=== PATIENT | female | born 1985 | race Caucasian/White ===

== ENCOUNTER 2016-06-04 19:49 | Emergency (ER) | payer MEDICAID ==
[~2016-06-04] VITALS: Ht 152.4 cm; Wt 62.0 kg
[2016-06-04 20:15] VITALS: Ht 152.4 cm; Wt 62.0 kg
--- NOTE | 2016-06-04 21:22 | ERD ---
ER Documentation Chief Complaint Date/Time DATE: 06/04/16 TIME: 21:19 Chief Complaint vag bleed since 10 am today, 11 weeks HPI 30-year-old female presents here in emergency department for complaints of vaginal bleeding started this morning, describes the bleeding or spotting any get heavier this afternoon. Patient is 6 para 5 0. Patient is approximately 11 weeks . Patient is complaining of pelvic pain, cramping pain, 4/10 scale, accompanying the bleeding. She denies hematuria or dysuria. Patient denies any nausea or vomiting. Patient denies any fever or chills. ROS All systems reviewed and are negative except as per history of present illness. Medications Home Meds Reported Medications [none] Unknown Strength No Conflict Check 06/04/16 Allergies Allergies: Coded Allergies: No Known Drug Allergy (Verified Allergy, Mild, 05/14/10) PMhx/Soc Medical and Surgical Hx: pt denies Medical Hx, pt denies Surgical Hx History of Surgery: No Anesthesia Reaction: No Hx Neurological Disorder: No Hx Respiratory Disorders: No Hx Cardiac Disorders: No Hx Psychiatric Problems: No Hx Miscellaneous Medical Probl: No Hx Alcohol Use: No Hx Substance Use: No Hx Tobacco Use: No FmHx Family History: No coronary disease, No diabetes, No other Physical Exam Vitals Vital Signs Date Time Temp Pulse Resp B/P Pulse Ox O2 Delivery O2 Flow Rate FiO2 06/04/16 20:15 98.6 60 18 115/58 99 Physical Exam GENERAL: The patient is well developed and appropriate for usual state of health, in no apparent distress. CHEST: Clear to auscultation bilaterally. There are no rales, wheezes or rhonchi. HEART: Regular rate and rhythm. No murmurs, clicks, rubs or gallops. No S3 or S4. ABDOMEN: Soft, nontender and nondistended. Good bowel sounds. No rebound or guarding. No gross peritonitis. No gross organomegaly or masses. No Cordova sign or McBurney point tenderness. BACK: No midline or flank tenderness. EXTREMITIES: Equal pulses bilaterally. There is no peripheral clubbing, cyanosis or edema. No focal swelling or erythema. Full range of motion. Grossly neurovascularly intact. NEURO: Alert and oriented. Cranial nerves 2-12 intact. Motor strength in all 4 extremities with 5/5 strength. Sensation grossly intact. Normal speech and gait. SKIN: There is no apparent rash or petechia. The skin is warm and dry. HEMATOLOGIC AND LYMPHATIC: There is no evidence of excessive bruising or lymphedema. No gross cervical, axillary, or inguinal lymphadenopathy. VAGINAL: Patient is small amount of blood in the vaginal vault, cervical os is closed. No cervical motion tenderness or adnexal tenderness noted. Result Diagram: 06/04/160 Results 24 hrs Laboratory Tests Test 06/04/16 21:30 06/04/16 21:45 White Blood Count 8.410^3/ul Red Blood Count 4.3110^6/ul Hemoglobin 12.7g/dl Hematocrit 39.3% Mean Corpuscular Volume 91.2fl Mean Corpuscular Hemoglobin 29.5pg Mean Corpuscular Hemoglobin Concent 32.3g/dl Red Cell Distribution Width 13.4% Platelet Count 98701^3/UL Mean Platelet Volume 9.2fl Neutrophils % 66.3% Lymphocytes % 26.3% Monocytes % 5.7% Eosinophils % 1.0% Basophils % 0.5% Nucleated Red Blood Cells % 0.0/100WBC Neutrophils # 5.610^3/ul Lymphocytes # 2.210^3/ul Monocytes # 0.510^3/ul Eosinophils # 0.110^3/ul Basophils # 0.010^3/ul Nucleated Red Blood Cells # 0.010^3/ul Urine Color RED Urine Clarity OTHER Urine pH 6.5 Urine Specific [place] 1.020 Urine Ketones NEGATIVE Urine Nitrite NEGATIVE Urine Bilirubin NEGATIVE Urine Urobilinogen 0.2 E.U./dL Urine Leukocyte Esterase NEGATIVE Urine Microscopic RBC >200/HPF Urine Microscopic WBC NONE SEEN/HPF Urine Epithelial Cells FEW Urine Bacteria MODERATE Urine Hemoglobin 3+ Urine Glucose NEGATIVE% Urine Total Protein TRACE Beta HCG, Quantitative 5844.4mIU/ml PROCEDURE: US OB. CLINICAL INDICATION: Vaginal bleeding a 30-year-old female. TECHNIQUE: Transabdominal and transvaginal views of the pelvis are available for review. COMPARISON: No prior studies are available for comparison. FINDINGS: The uterus measures 10.5 cm sagittal by 6.5 cm AP by 7.7 cm transverse. The uterus contains a gestational sac. A small amount of fluid is noted in the cervical os. The gestational sac measured 1.9 x 1.2 x 1.1 cm. The mean sac diameter is 1.4 cm which calculates out to 6 weeks 0 days. [place]-rump length: 0.69 cm equals 6 weeks 4 days. heart rate: No heart tones are identified. Nuchal translucency: Not available. Ultrasound estimated gestational age: 10 weeks 6 days. No ovarian or adnexal mass lesion is seen. There is no free fluid. IMPRESSION: 1. demise. 2. AUA is 6 weeks 4 days plus or minus 0 weeks 4 days. RPTAT:AAJJ Physician Jamil Date Time Electronically viewed and signed by Kevin Sawyer Physician on 06/04/2016 21:55 JM/ CC: JOSE BARFIELD REVERBERATORY SKIMMER Procedures/MDM Medical Decision Making: Patients vaginal bleeding is most likely consistent of possible threatened . Patient does not show any evidence of hypovolemic shock. Patients hemoglobin and hematocrit is stable. There is low suspicion for ectopic . AMBROCIO results show 6 wks w/o FHT. BetaHCG Quantitative is lower for gestational age of 10 wks.The patient is Rh+, does not need RhoGAM this time. There is no signs of symptoms of dehydration. There is low suspicion for sepsis. Patient appears well and is hemodynamically stable. Disposition: Home. Condition: Stable RX: TYLENOL Instructions: Patient is advised to do bed rest, avoid heavy lifting, and avoid having sex until cleared by OB doctor. Patient is advised to follow up with OB doctor or here at the ER in 48 hours for reevaluation of symptoms, repeat beta HCG quantitative and ultrasound. Patient is advised that is symptoms are worst, severe bleeding, dizziness, severe abdominal pain, fever, worst signs and symptoms to return to the emergency department immediately. Departure Diagnosis: Primary Impression: Threatened Condition: Stable Patient Instructions: Possible Miscarriage (Threatened ) Additional Instructions: Patient is advised to do bed rest, avoid heavy lifting, and avoid having sex until cleared by OB doctor. Patient is advised to follow up with OB doctor or here at the ER in 48 hours for reevaluation of symptoms, repeat beta HCG quantitative and ultrasound. Patient is advised that is symptoms are worst, severe bleeding, dizziness, severe abdominal pain, fever, worst signs and symptoms to return to the emergency department immediately. JOSE BARFIELD NP Jun 04, 2016 21:22
[2016-06-04 21:46] LABS: ADD UMIC YES; URINE BILIRUBIN (Dip) NEGATIVE (NEGATIVE); URINE BLOOD (Dip) 3+ (NEGATIVE); URINE COLOR RED (YELLOW); URINE GLUCOSE (Dip) NEGATIVE (NEGATIVE); URINE KETONES (Dip) NEGATIVE (NEGATIVE); URINE LEUKOCYTE ESTERASE (Dip) NEGATIVE (NEGATIVE); URINE NITRITE (Dip) NEGATIVE (NEGATIVE); URINE TOTAL PROTEIN (Dip) TRACE (NEGATIVE); URINE UROBILINOGEN (Dip) 0.2 E.U./dL (0.1-1.0)
--- NOTE | 2016-06-04 21:56 | RADRPT ---
PROCEDURE: US OB. CLINICAL INDICATION: Vaginal bleeding a 30-year-old female. TECHNIQUE: Transabdominal and transvaginal views of the pelvis are available for review. COMPARISON: No prior studies are available for comparison. FINDINGS: The uterus measures 10.5 cm sagittal by 6.5 cm AP by 7.7 cm transverse. The uterus contains a gesta tional sac. A small amount of fluid is noted in the cervical os. The gestational sac measured 1.9 x 1.2 x 1.1 cm. The mean sac diameter is 1.4 cm which calculates o ut to 6 weeks 0 days. [place]-rump length:0.69 cm equals 6 weeks 4 days. heart rate:No heart tones are identified. Nuchal translucency:Not available. Ultrasound estimated gestational age:10 weeks 6 days. No ovarian or adnexal mass lesion is seen. There is no free fluid. IMPRESSION: 1. demise. 2. AUA is 6 weeks 4 days plus or minus 0 weeks 4 days. RPTAT:AAJJ Physician Jamil Date Time Electronically viewed and signed by Kevin Sawyer Physician on 06/04/2016 21:55 /
[2016-06-04 22:02] LABS: ADD SCAN DIFF NO
[2016-06-04 22:04] LABS: BASOPHILS % 0.5 % (0.0-2.0); EOSINOPHILS # 0.1 10^3/ul (0.0-0.5); HEMATOCRIT 39.3 % (37.0-47.0); HEMOGLOBIN 12.7 g/dl (12.0-16.0); LYMPHOCYTES # 2.2 10^3/ul (0.8-2.9); LYMPHOCYTES % 26.3 % (15.0-51.0); MEAN CORPUSCULAR HEMOGLOBIN 29.5 pg (29.0-33.0); MEAN CORPUSCULAR HGB CONC 32.3 g/dl (32.0-37.0); MEAN CORPUSCULAR VOLUME 91.2 fl (82.0-101.0); MEAN PLATELET VOLUME 9.2 fl (7.4-10.4); MONOCYTE # 0.5 10^3/ul (0.3-0.9); MONOCYTES % 5.7 % (0.0-11.0); NEUTROPHIL # 5.6 10^3/ul (1.6-7.5); NEUTROPHILS % 66.3 % (39.0-77.0); PLATELET COUNT 213 10^3/UL (140-415); RED BLOOD COUNT 4.31 10^6/ul (4.20-5.40); RED CELL DISTRIBUTION WIDTH 13.4 % (11.5-14.5); WHITE BLOOD COUNT 8.4 10^3/ul (4.8-10.8)
[2016-06-04 22:17] LABS: BACTERIA,URINE MODERATE; URINE RBCS >200 /HPF (0)
[2016-06-04] MEDS ORDERED: ACET500C5 PO (22:52)
[2016-06-04 23:27] VITALS: BP 122/78; PULSE 65; RESP 16
== END 2016-06-04 23:29 | disposition home or self-care (01) ==
LOC: FTE 19:49
DX: O20.0 Threatened abortion (principal); Z3A.01 Less than 8 weeks gestation of pregnancy
CPT/HCPCS: 76801; 76817; 81001; 81003; 84702; 85025; 86900; 86901; Z7502

== ENCOUNTER 2016-06-06 12:59 | Emergency (ER) | payer MEDICAID ==
[~2016-06-06] VITALS: Ht 157.5 cm; Wt 68.0 kg
[~2016-06-06 12:59] MED LIST: ACET500C5 PO
[2016-06-06 13:01] VITALS: Ht 157.5 cm; Wt 68.0 kg
[2016-06-06 14:56] LABS: ADD SCAN DIFF NO
[2016-06-06 14:59] LABS: BASOPHILS % 0.5 % (0.0-2.0); EOSINOPHILS # 0.1 10^3/ul (0.0-0.5); EOSINOPHILS % 1.7 % (0.0-7.0); HEMOGLOBIN 13.4 g/dl (12.0-16.0); LYMPHOCYTES % 30.8 % (15.0-51.0); MEAN CORPUSCULAR HEMOGLOBIN 30.2 pg (29.0-33.0); MEAN CORPUSCULAR HGB CONC 32.7 g/dl (32.0-37.0); MEAN CORPUSCULAR VOLUME 92.6 fl (82.0-101.0); MEAN PLATELET VOLUME 9.1 fl (7.4-10.4); MONOCYTE # 0.4 10^3/ul (0.3-0.9); MONOCYTES % 6.4 % (0.0-11.0); NEUTROPHILS % 60.3 % (39.0-77.0); PLATELET COUNT 224 10^3/UL (140-415); RED BLOOD COUNT 4.43 10^6/ul (4.20-5.40); RED CELL DISTRIBUTION WIDTH 13.2 % (11.5-14.5); WHITE BLOOD COUNT 6.6 10^3/ul (4.8-10.8)
[2016-06-06 15:27] LABS: ADD UMIC YES; URINE BILIRUBIN (Dip) NEGATIVE (NEGATIVE); URINE BLOOD (Dip) 3+ (NEGATIVE); URINE COLOR LT. YELLOW (YELLOW); URINE GLUCOSE (Dip) NEGATIVE (NEGATIVE); URINE KETONES (Dip) NEGATIVE (NEGATIVE); URINE LEUKOCYTE ESTERASE (Dip) NEGATIVE (NEGATIVE); URINE NITRITE (Dip) NEGATIVE (NEGATIVE); URINE TOTAL PROTEIN (Dip) NEGATIVE (NEGATIVE); URINE UROBILINOGEN (Dip) 0.2 E.U./dL (0.1-1.0)
--- NOTE | 2016-06-06 15:40 | RADRPT ---
PROCEDURE: US Pelvis. CLINICAL INDICATION: vaginal bleeding TECHNIQUE: Multiple sonographic images of the pelvis were obtained utilizing a transabdominal and endovaginal technique. The images were reviewed on a PACS workstation. COMPARISON: 06/04/2016 FINDINGS: The uterus is normal in size and demonstrates a normal appearance of the myometrium. The endometria l stripe is slightly heterogeneous in appearance and has the thickness of 12 mm. Previously seen intrauterine gestation is no longer visualized. The ovaries are normal in size and echogenicity. Normal Doppler flow is identified in both ovaries. The right ovary measures 1.7 x 0.8 x 1.1 cm. The left ovary measures 1.7 x 1.2 x 1.4 cm. No free fluid is present within the pelvis.. RPTAT: AA IMPRESSION: Previously seen intrauterine gestation is no longer visualized. Follow-up decreasing HCG levels is recommended. .He Stock MD, MD Date Time Electronically viewed and signed by .He Stock MD, on 06/06/2016 15:39 .S/
[2016-06-06 15:45] LABS: BACTERIA,URINE FEW; URINE RBCS >50 /HPF (0)
--- NOTE | 2016-06-06 15:49 | ERD ---
ER Documentation Chief Complaint Date/Time DATE: 06/06/16 TIME: 15:47 Chief Complaint vaginal bleeding 11 weeks HPI This is a 30-year-old female presents to the ER with continued vaginal bleeding. Patient started bleeding 2 days ago and was seen here. Patient states that last night she began to bleed more heavily and she saw some tissue passed. She still having some pelvic cramping. Patient denies any urinary frequency or dysuria. A0. Patient denies any vaginal discharge. ROS 12 point review of systems was done, all negative except per HPI. Medications Home Meds Active Scripts Acetaminophen* (Tylophen*) 500 Mg Capsule, 1 CAP PO Q6H Y for PAIN AND OR ELEVATED TEMP, #20 CAP Prov:JOSE BARFIELD NP 06/04/16 Reported Medications [none] Unknown Strength No Conflict Check 06/04/16 Allergies Allergies: Coded Allergies: No Known Drug Allergy (Verified Allergy, Mild, 06/06/16) PMhx/Soc Medical and Surgical Hx: pt denies Medical Hx, pt denies Surgical Hx History of Surgery: No Anesthesia Reaction: No Hx Neurological Disorder: No Hx Respiratory Disorders: No Hx Cardiac Disorders: No Hx Psychiatric Problems: No Hx Miscellaneous Medical Probl: No Hx Alcohol Use: No Hx Substance Use: No Hx Tobacco Use: No Smoking Status: Never smoker Physical Exam Vitals Vital Signs Date Time Temp Pulse Resp B/P Pulse Ox O2 Delivery O2 Flow Rate FiO2 06/06/16 13:01 98.4 62 18 109/63 97 Physical Exam GENERAL: The patient is well developed and appropriate for usual state of health , in no apparent distress. HEENT: Atraumatic. C CHEST: Clear to auscultation bilaterally. There are no rales, wheezes or rhonchi. HEART: Regular rate and rhythm. No murmurs, clicks, rubs or gallops. ABDOMEN: Soft, nontender and nondistended. Good bowel sounds. No rebound or guarding. No gross peritonitis. No gross organomegaly or masses. No Cordova sign or McBurney point tenderness. BACK: No midline or flank tenderness. NEURO: Alert and oriented. SKIN: The skin is warm and dry. Result Diagram: 06/06/16 1440 Results 24 hrs Laboratory Tests Test 06/06/16 14:40 White Blood Count 6.610^3/ul Red Blood Count 4.4310^6/ul Hemoglobin 13.4g/dl Hematocrit 41.0% Mean Corpuscular Volume 92.6fl Mean Corpuscular Hemoglobin 30.2pg Mean Corpuscular Hemoglobin Concent 32.7g/dl Red Cell Distribution Width 13.2% Platelet Count 30138^3/UL Mean Platelet Volume 9.1fl Neutrophils % 60.3% Lymphocytes % 30.8% Monocytes % 6.4% Eosinophils % 1.7% Basophils % 0.5% Nucleated Red Blood Cells % 0.0/100WBC Neutrophils # 4.010^3/ul Lymphocytes # 2.010^3/ul Monocytes # 0.410^3/ul Eosinophils # 0.110^3/ul Basophils # 0.010^3/ul Nucleated Red Blood Cells # 0.010^3/ul Urine Color LT. YELLOW Urine Clarity HAZY Urine pH 5.5 Urine Specific [place] 1.025 Urine Ketones NEGATIVE Urine Nitrite NEGATIVE Urine Bilirubin NEGATIVE Urine Urobilinogen 0.2 E.U./dL Urine Leukocyte Esterase NEGATIVE Urine Microscopic RBC >50/HPF Urine Microscopic WBC 2-5/HPF Urine Epithelial Cells MODERATE Urine Bacteria FEW Urine Hemoglobin 3+ Urine Glucose NEGATIVE% Urine Total Protein NEGATIVE Beta HCG, Quantitative 1980.6mIU/ml Procedures/MDM Differential diagnosis: Threatened , missed , incomplete , ectopic , molar , UTI, pyelonephritis. This is a 30 -year-old female presents to the ER with vaginal bleeding. Patient unfortunately did have a miscarriage. Intrauterine gestation is no longer seen on ultrasound and her beta hCG is going down. Patient is to follow-up with her primary care doctor within 1-2 days or return to ER sooner if symptoms worsen. My medical decision making was shared with the patient she understands and agrees with plan Departure Diagnosis: Primary Impression: Miscarriage Condition: Stable Patient Instructions: Miscarriage Additional Instructions: Llame al doctor MAANA y ray ivan LYNNETTE PARA DENTRO DE 1-2 SOUTH.Dgale a la secretaria que nosotros le instruimos hacer esta lynnette.Avise o llame si buckley condicin se empeora antes de la lynnette. Regresa aqui si peor o no mejor. ONOFRE MARIN Jun 06, 2016 15:49
[2016-06-06 15:53] VITALS: TEMP 98.2
== END 2016-06-06 15:51 | disposition home or self-care (01) ==
LOC: FTE 12:59
DX: O02.1 Missed abortion (principal)
CPT/HCPCS: 36415; 76801; 76817; 81001; 81003; 84702; 85025; Z7502

== ENCOUNTER 2016-06-16 05:22 | Emergency (ER) | payer MEDICAID ==
[~2016-06-16] VITALS: Ht 152.4 cm; Wt 62.0 kg
[2016-06-16 05:26] VITALS: Ht 152.4 cm; Wt 62.0 kg
--- NOTE | 2016-06-16 06:18 | ERD ---
ER Documentation Chief Complaint Date/Time DATE: 06/16/16 TIME: 06:13 Chief Complaint Urine problem. pt had recent 10 days ago. D&C procedure HPI Patient is a 30-year-old female who presents to the emergency department with urinary frequency, urgency and dysuria. She states that her symptoms have been present for last week. Patient denies any suprapubic tenderness, flank pain, hematuria, fever, chills, nausea, vomiting or loss of consciousness. Patient states that she had a spontaneous miscarriage on 06-06-16. Patient states that she is currently spotting but denies any heavy vaginal bleeding. Patient denies any pelvic pain and pelvic cramping. ROS All systems reviewed and are negative except as per history of present illness. Medications Home Meds Active Scripts Phenazopyridine Hcl* (Pyridium*) 100 Mg Tab, 100 MG PO TID Y for URINARY PAIN, # 8 TAB Prov:ROSAURA JAIMES PA-C 06/16/16 Acetaminophen* (Tylophen*) 500 Mg Capsule, 1 CAP PO Q6H Y for PAIN AND OR ELEVATED TEMP, #20 CAP Prov:JOSE BARFIELD NP 06/04/16 Reported Medications [none] Unknown Strength No Conflict Check 06/04/16 Allergies Allergies: Coded Allergies: No Known Drug Allergy (Verified Allergy, Mild, 06/06/16) PMhx/Soc Medical and Surgical Hx: pt denies Medical Hx, pt denies Surgical Hx History of Surgery: No Anesthesia Reaction: No Hx Neurological Disorder: No Hx Respiratory Disorders: No Hx Cardiac Disorders: No Hx Psychiatric Problems: No Hx Miscellaneous Medical Probl: No Hx Alcohol Use: No Hx Substance Use: No Hx Tobacco Use: No FmHx Family History: No diabetes Physical Exam Vitals Vital Signs Date Time Temp Pulse Resp B/P Pulse Ox O2 Delivery O2 Flow Rate FiO2 06/16/16 05:26 96.1 75 18 99/60 96 Physical Exam GENERAL: Well-developed, well-nourished female. Appears in no acute distress. HEAD: Normocephalic, atraumatic. EYES: Pupils are equally reactive bilaterally. EOMs grossly intact. No conjunctival erythema. ENT: Moist mucous membranes. No uvula deviation. No kissing tonsils. NECK: Supple. No meningismus. Normal range of motion of the neck. LUNG: Clear to auscultation bilaterally. No rhonchi, wheezing, rales or coarse breath sounds. HEART: Regular rate and rhythm. No murmurs, rubs or gallops. ABDOMEN: No scars, ecchymosis or rashes noted. Soft, nontender, and nondistended. Positive bowel sounds in all four quadrants. No rebound tenderness , no guarding. (-) McBurney's point tenderness. No CVA tenderness. BACK: No midline tenderness. EXTREMITIES: Equal pulses bilaterally. No peripheral clubbing, cyanosis or edema. No unilateral leg swelling. NEUROLOGIC: Alert and oriented. Moving all four extremities without any difficulty. Normal speech. Steady gait. SKIN: Normal color. Warm and dry. No rashes or lesions. Results 24 hrs Laboratory Tests Test 06/16/16 06:20 Bedside Urine pH (LAB) 6.5 Bedside Urine Protein (LAB) Negative Bedside Urine Glucose (UA) Negative Bedside Urine Ketones (LAB) Negative Bedside Urine Blood 2+ Bedside Urine Nitrite (LAB) Negative Bedside Urine Leukocyte Esterase (L Negative Procedures/MDM MEDICAL DECISION MAKING: This is a 30-year-old female who presents with urinary frequency, urgency and dysuria 1 week. Vital signs were reviewed. Patient was afebrile. Urine test was negative. Urine dip showed +blood. UGiven these findings, the patient's presentation is most consistent with dysuria. I have a much lower clinical concern for ,UTI, pyelonephritis, nephrolithiasis, appendicitis, diverticulitis, constipation, , ectopic , IUP, PID, ovarian torsion. I explained to the patient that her positive hematuria is likely due to the fact that the has vaginal spotting. PRESCRIPTIONS: Pyridium DISCHARGE: At this time, patient is stable for discharge and outpatient management. I have instructed the patient to follow-up with his/her primary care physician in 1-2 days. If symptoms persist, patient may need to see a specialist for further examinations and testing. I have instructed the patient to promptly return to the ER at any time for any new or worsening symptoms including increased pain, fever, nausea, vomiting, urinary changes or weakness. The patient and/or family expressed understanding of and agreement with this plan. All questions were answered. Home care instructions were provided. Departure Diagnosis: Primary Impression: UTI (urinary tract infection) Urinary tract infection type: site unspecified Hematuria presence: without hematuria Qualified Code: N39.0 - Urinary tract infection without hematuria, site unspecified Condition: Stable Patient Instructions: Understanding Urinary Tract Infections (UTIs) Referrals: [facility] YOU HAVE RECEIVED A MEDICAL SCREENING EXAM AND THE RESULTS INDICATE THAT YOU DO NOT HAVE A CONDITION THAT REQUIRES URGENT TREATMENT IN THE EMERGENCY DEPARTMENT. FURTHER EVALUATION AND TREATMENT OF YOUR CONDITION CAN WAIT UNTIL YOU ARE SEEN IN YOUR DOCTORS OFFICE WITHIN THE NEXT 1-2 DAYS. IT IS YOUR RESPONSIBILITY TO MAKE AN APPOINTMENT FOR FOLOW-UP CARE. IF YOU HAVE A PRIMARY DOCTOR --you should call your primary doctor and schedule an appointment IF YOU DO NOT HAVE A PRIMARY DOCTOR YOU CAN CALL OUR PHYSICIAN REFERRAL HOTLINE AT IF YOU CAN NOT AFFORD TO SEE A PHYSICIAN YOU CAN CHOSE FROM THE FOLLOWING [facility] [address] [facility] [address] [facility] [address] [facility] [address] [facility] [address] [facility] [facility] [address] [facility]. [facility] YOU HAVE RECEIVED A MEDICAL SCREENING EXAM AND THE RESULTS INDICATE THAT YOU DO NOT HAVE A CONDITION THAT REQUIRES URGENT TREATMENT IN THE EMERGENCY DEPARTMENT. FURTHER EVALUATION AND TREATMENT OF YOUR CONDITION CAN WAIT UNTIL YOU ARE SEEN IN YOUR DOCTORS OFFICE WITHIN THE NEXT 1-2 DAYS. IT IS YOUR RESPONSIBILITY TO MAKE AN APPOINTMENT FOR FOLOW-UP CARE. IF YOU HAVE A PRIMARY DOCTOR --you should call your primary doctor and schedule and appointment IF YOU DO NOT HAVE A PRIMARY DOCTOR YOU CAN CALL OUR PHYSICIAN REFERRAL HOTLINE AT . IF YOU CAN NOT AFFORD TO SEE A PHYSICIAN YOU CAN CHOSE FROM THE FOLLOWING [facility] INSTITUTIONS: [facility] [address] [place] [address] [facility] [address] [place] [address] [facility] + [facility] [address] [place] [address] [employer] [place] [address] [facility] [address] [place] [address] OFFICE FAX , [facility] [address] [place] [address] DR. CRYSTAL, [place] [address] [place] [address] DR SANDHU, [facility] [address] [address] [facility], [address], [place] [address] DR CHILELJUAN MIGUEL, [facility] [address] [facility], [place] [address] [facility] [address] [place] [address] [facility] [address] [address] MARIE, [address] [facility], [place] [address] DR VALENTINE, ERNESTINA [address] [facility]. [address] [address] DR QUILES, [facility] [address] [place], [place] [id number] ROSAURA JAIMES PA-C Jun 16, 2016 06:18 ROSAURA JAIMES PA-C Jun 16, 2016 06:18
[2016-06-16 06:20] LABS: URINE BLOOD (Dip) POC 2+ (NEGATIVE)
[2016-06-16] MEDS ORDERED: PHEN-537 PO (06:39)
== END 2016-06-16 06:49 | disposition home or self-care (01) ==
LOC: FTE 05:22
DX: N39.0 Urinary tract infection, site not specified (principal)
CPT/HCPCS: 81003; Z7502; 99283